=== PATIENT | female | born 1965 | race Caucasian/White ===

== ENCOUNTER 2021-01-12 09:56 | Day surgery (SDC) | payer BC, SELFPAY ==
[2021-01-05 13:59] VITALS: BMI 36.7
--- NOTE | 2021-01-11 07:58 | P.CONAN_ITS ---
Documented by User: Jessica Duckworth 01/11/21 07:59 HPI - Anesthesia Eval Consult details Narrative: 55yo F for Colonoscopy PMFSH Past Medical History Medical History History of cellulitis HTN (hypertension) Surgical History Surgical History History of wisdom tooth extraction Hx of section Hx of colonoscopy Social History Social History Do you presently have visiting nurse or other home services: No Smoking Status: Never smoker Use of substances other than those prescribed or required for medical reasons: No Have you been hit, kicked, punched, or otherwise hurt by someone within the past year? If so, by whom?: No Advance Directives: No Advance Directives Information Provided: No Advance Directives on File: No Recently lost weight without trying: No Meds Allergies Allergy/AdvReac Type Severity Reaction Status Date / Time keflex Allergy Mild rash Uncoded 01/12/21 10:28 Home Medications Medication Instructions Recorded Confirmed Last Taken Type lisinopril 1 tab PO DAILY 01/05/21 01/05/21 01/12/21 08:00 History multivitamin 1 tab PO DAILY 01/05/21 01/05/21 Unknown History Exam Exam Date and Time: January 11, 2021 0758 Height,Weight and Vital Signs: Height 5 ft 4 in Weight 97.069 kg Assessment and Plan Assessment Anesthesia Assessment: Chart Reviewed Documented by User: Suzy Shipley 01/12/21 11:40 [facility] Past Medical History Medical History History of cellulitis HTN (hypertension) Surgical History Surgical History History of wisdom tooth extraction Hx of section Hx of colonoscopy Social History Social History Do you presently have visiting nurse or other home services: No Smoking Status: Never smoker Use of substances other than those prescribed or required for medical reasons: No Have you been hit, kicked, punched, or otherwise hurt by someone within the past year? If so, by whom?: No Advance Directives: No Advance Directives Information Provided: No Advance Directives on File: No Recently lost weight without trying: No Meds Allergies Allergy/AdvReac Type Severity Reaction Status Date / Time keflex Allergy Mild rash Uncoded 01/12/21 10:28 Home Medications Medication Instructions Recorded Confirmed Last Taken Type lisinopril 1 tab PO DAILY 01/05/21 01/05/21 01/12/21 08:00 History multivitamin 1 tab PO DAILY 01/05/21 01/05/21 Unknown History Exam Airway Mallampati Class: II TM Dist: >3cm Neck ROM: Full Loose/Missing/Broken Teeth: No Heart: RRR Lungs: CTA Assessment and Plan Assessment Anesthesia Assessment: Anesthesia Plan Discussed and Chart Reviewed Final Anesthetic Review NPO: Yes ASA Class: II Final Preanesthetic Review: Meds/Allgs Chart Reviewed, Consent Obtained/Reviewed and Anes Risks/Benef Reviewed Patient Risk: Low Procedure Risk: Low Anesthetic Plan Anesthetic Plan: MAC: Disposition: Standard PACU
[2021-01-12 10:54] VITALS: BP 130/75; PULSE 78; RESP 18; TEMP 36.6; O2SAT 98
[2021-01-12] MEDS: Lactated Ringers 1,000 ML 100 ML IVCONT (11:04)
[2021-01-12 12:22] VITALS: BP 147/79; PULSE 93; RESP 20; TEMP 37; O2SAT 99
--- NOTE | 2021-01-12 12:24 | PM.OP ---
Brief Operative Note Date of Service: 01/12/21 Pre-op diagnosis: Screening Post-op diagnosis: other (Diverticulosis, Internal/External Hemorrhoids) Procedure: Colonoscopy to cecum and TI Surgeon: Jhony Koo Anesthesia: MAC Estimated blood loss (mL): 0 Pathology: none sent Condition: stable Disposition: PACU
[2021-01-12 12:37] VITALS: BP 153/77; PULSE 65; RESP 20; O2SAT 99
[2021-01-12] MEDS: ondansetron HCL 4 MG/2 ML VIAL IVPUSH (12:41)
[2021-01-12 12:47] VITALS: BP 154/79; PULSE 68; RESP 16; TEMP 37; O2SAT 99
--- NOTE | 2021-01-12 13:23 | OP_ITS ---
SURGEON: Jhony Koo MD PREOPERATIVE DIAGNOSIS: Personal history of tubular adenoma of the colon and colorectal cancer screening. POSTOPERATIVE DIAGNOSIS: Personal history of tubular adenoma of the colon and colorectal cancer screening, diverticulosis, internal and external hemorrhoids. PROCEDURE PERFORMED: ESTIMATED BLOOD LOSS: COMPLICATIONS: ANESTHESIA: Monitored anesthesia care. ASSISTANTS: SPECIMENS: PROCEDURE: Colonoscopy to cecum and terminal ileum. INDICATION: Patient presents for evaluation of colorectal cancer screening and personal history of tubular adenoma of the colon. Full consent has been obtained from her for this, including risks of bleeding and perforation. DESCRIPTION OF PROCEDURE: The patient was placed in the left lateral decubitus position. The digital rectal exam revealed external hemorrhoidal tissue. The Olympus video pediatric colonoscope was advanced into the rectum and advanced easily to the cecum. Once in the cecum, I did identify normal-appearing cecal pouch with appendiceal orifice and a normal-appearing ileocecal valve. The terminal ileum was cannulated and appeared normal. The scope was withdrawn back in the colon. The entire cecum and ileocecal valve appeared normal. Scope was slowly withdrawn assessing all mucosal surfaces carefully. Preparation was excellent. I did not visualize any sign of polyps, colitis, or angiodysplasia. There was a mild amount of sigmoid diverticulosis. In the rectum, scope was retroflexed, visualizing internal hemorrhoids, but no other pathology. The rectal mucosa appeared normal. The scope was straightened and withdrawn from the patient. She tolerated the procedure well and was returned to recovery area in stable condition. IMPRESSION: 1. Diverticulosis. 2. Internal and external hemorrhoids. PLAN: Given her previous history, I would recommend a followup colonoscopy in 5 years for further screening. She will otherwise see me on a p.r.n. basis. This has been discussed with her . MD CARLOTTA Rosario/BETTINAL / [id number]
== END 2021-01-12 13:28 | disposition home or self-care (01) ==
PROVIDERS: PCP Internal Medicine; Visit Provider Internal Medicine
PROC: 0DJD8ZZ Inspection of Lower Intestinal Tract, Via Natural or Artificial Opening Endoscopic (ICD-10-PCS; CPT 45378; principal; 2021-01-12 11:10)
DX: Z12.11 Encounter for screening for malignant neoplasm of colon (principal); Z86.010 Personal history of colon polyps; K57.30 Diverticulosis of large intestine without perforation or abscess without bleeding; K64.8 Other hemorrhoids; K64.4 Residual hemorrhoidal skin tags; I10 Essential (primary) hypertension; Z79.899 Other long term (current) drug therapy; Z88.1 Allergy status to other antibiotic agents
CPT/HCPCS: 45378; J2405

== ENCOUNTER 2021-06-21 09:10 | Outpatient (REF) | payer BC, SELFPAY ==
--- NOTE | ~2021-06-21 | MM_ITS ---
EXAMINATION: MM SCREENING DIGITAL BREAST TOMOSYNTHESIS, BILATERAL CLINICAL INFORMATION: Screening. Asymptomatic. The lifetime risk of breast cancer based on the Tyrer-Cuzick Model is 7.6%. COMPARISON: Mammography: June 15, 2020 and studies dating back to May 08, 2015 TECHNIQUE: Digital breast tomosynthesis is performed in both the craniocaudal and mediolateral oblique views along with computer-aided detection (CAD). Synthesized 2D images are generated from the tomosynthesis. FINDINGS: There are scattered areas of fibroglandular density (ACR BI-RADS breast composition Category b). There are no significant masses, abnormal calcifications, or other abnormalities. MM/MM tomosynthesis screening BI IMPRESSION: There are no significant changes from prior study. ASSESSMENT: BI-RADS 1: Negative RECOMMENDATION: Routine annual mammography screening. This patient's information was entered into a reminder system with a target due date for their next mammogram.
== END 2021-06-21 09:11 | disposition home or self-care (01) ==
LOC: HO.MAMMO 09:10
PROVIDERS: PCP Internal Medicine; Visit Provider Internal Medicine
DX: Z12.31 Encounter for screening mammogram for malignant neoplasm of breast (principal)
CPT/HCPCS: 77063; 77067

== ENCOUNTER 2021-12-07 11:13 | Outpatient (REF) | payer BC, SELFPAY ==
[2021-12-07 11:40] LABS: MANUAL DIFF FLAG NO
[2021-12-07 12:04] LABS: Basophils Percent Auto 0.8 % (0-2); Eosinophils Absolute Auto 0.1 X10*3/uL (0.0-0.4); Eosinophils Percent Auto 2.8 % (0-4); Hemoglobin 14.4 g/dl (12.0-16.0); Imm Gran Abs Auto 0.01 X10*3/uL (0.00-0.03); Imm Gran Pct Auto 0.3 % (0.0-0.4); Lymphocytes Absolute Auto 1.4 X10*3/uL (1.2-4.9); Lymphocytes Percent Auto 34.3 % (20-40); Mean Corpuscular HGB Conc 32.7 g/dl (31.0-35.0); Mean Corpuscular Hemoglobin 30.1 pg (27.0-33.0); Mean Corpuscular Volume 91.9 fL (80.0-98.0); Monocytes Absolute Auto 0.4 X10*3/uL (0.1-1.2); Monocytes Percent Auto 9.6 % (2-11); Neutrophils Absolute Auto 2.1 x10*3/uL (2.0-8.3); Neutrophils Percent Auto 52.2 % (45-73); Platelet Count 284 X10*3/uL (160-400); Red Blood Count 4.79 X10*6/uL (4.20-5.50); White Blood Count 3.9 X10*3/uL (4.8-10.8)
[2021-12-07 12:31] LABS: Alanine Aminotransferase 24 U/L (0-31); Albumin Level 4.1 g/dL (3.5-5.0); Alkaline Phosphatase 73 U/L (39-117); Anion Gap 11 (12-20); Aspartate Amino Transferase 19 U/L (5-31); Bilirubin Total 0.6 mg/dL (0.0-1.0); Blood Urea Nitrogen 13 mg/dL (9-16); Calcium 9.3 mg/dL (8.4-10.2); Carbon Dioxide 31 mmol/L (22-29); Chloride 102 mmol/L (96-108); Cholesterol 205 mg/dL; Estimated Glomerular Filt Rate > 60; Glucose Fasting 96 mg/dL (60-99); HDL Cholesterol 50 mg/dL; LDL Cholesterol Calculated 132 mg/dl; Potassium 4.8 mmol/L (3.3-5.1); Sodium 139 mmol/L (135-145); Total Protein 6.8 g/dL (6.5-8.0); Triglycerides 118 mg/dL
[2021-12-07 12:53] LABS: Vitamin D 25-OH Total 32.5 ng/mL (>30)
== END 2021-12-07 11:14 | disposition home or self-care (01) ==
LOC: HO.LAB 11:13
PROVIDERS: PCP Internal Medicine; Visit Provider Internal Medicine
DX: Z00.00 Encounter for general adult medical examination without abnormal findings (principal); E55.9 Vitamin D deficiency, unspecified
CPT/HCPCS: 36415; 80053; 80061; 82306; 85025

== ENCOUNTER 2022-06-24 09:00 | Outpatient (REF) | payer BC, SELFPAY ==
--- NOTE | ~2022-06-24 | MM_ITS ---
EXAMINATION: MM SCREENING DIGITAL BREAST TOMOSYNTHESIS, BILATERAL CLINICAL INFORMATION: Screening. Asymptomatic. The lifetime risk of breast cancer based on the Tyrer-Cuzick Model is 7%. COMPARISON: Mammography: 06/21/2021, 06/15/2020, 01/29/2019 TECHNIQUE: Digital breast tomosynthesis is performed in both the craniocaudal and mediolateral oblique views along with computer-aided detection (CAD). Synthesized 2D images are generated from the tomosynthesis. FINDINGS: There are scattered areas of fibroglandular density (ACR BI-RADS breast composition Category b). There are no significant masses, abnormal calcifications, or other abnormalities. Parenchymal pattern is similar to prior studies. There is no developing density or architectural abnormality. The axilla and skin contours are unremarkable. No significant changes. MM/MM tomosynthesis screening BI IMPRESSION: No mammographic evidence of malignancy. ASSESSMENT: BI-RADS 1: Negative RECOMMENDATION: Routine annual mammography screening. This patient's information was entered into a reminder system with a target due date for their next mammogram.
== END 2022-06-24 09:01 | disposition home or self-care (01) ==
LOC: HO.MAMMO 09:00
PROVIDERS: Visit Provider Internal Medicine
DX: Z12.31 Encounter for screening mammogram for malignant neoplasm of breast (principal)
CPT/HCPCS: 77063; 77067

== ENCOUNTER 2022-12-06 10:12 | Outpatient (REF) | payer BC, SELFPAY ==
[2022-12-06 10:31] LABS: MANUAL DIFF FLAG NO
[2022-12-06 11:50] LABS: Eosinophils Absolute Auto 0.1 X10*3/uL (0.0-0.4); Eosinophils Percent Auto 2.8 % (0-4); Hematocrit 44.3 % (37.0-47.0); Hemoglobin 14.3 g/dl (12.0-16.0); Imm Gran Abs Auto 0.01 X10*3/uL (0.00-0.03); Imm Gran Pct Auto 0.3 % (0.0-0.4); Lymphocytes Absolute Auto 1.3 X10*3/uL (1.2-4.9); Lymphocytes Percent Auto 32.6 % (20-40); Mean Corpuscular HGB Conc 32.3 g/dl (31.0-35.0); Mean Corpuscular Hemoglobin 29.7 pg (27.0-33.0); Mean Corpuscular Volume 92.1 fL (80.0-98.0); Mean Platelet Volume 9.7 fL (9.4-12.3); Monocytes Absolute Auto 0.4 X10*3/uL (0.1-1.2); Monocytes Percent Auto 9.3 % (2-11); Neutrophils Absolute Auto 2.1 x10*3/uL (2.0-8.3); Platelet Count 297 X10*3/uL (160-400); Red Blood Count 4.81 X10*6/uL (4.20-5.50); Red Cell Distribution Width 12.3 % (11.0-16.0)
[2022-12-06 12:30] LABS: Alanine Aminotransferase 17 U/L (0-31); Alkaline Phosphatase 80 U/L (39-117); Anion Gap 13 (12-20); Aspartate Amino Transferase 19 U/L (5-31); Bilirubin Total 0.7 mg/dL (0.0-1.0); Blood Urea Nitrogen 14 mg/dL (9-16); Calcium 9.2 mg/dL (8.4-10.2); Carbon Dioxide 29 mmol/L (22-29); Chloride 103 mmol/L (96-108); Cholesterol 208 mg/dL; Estimated Glomerular Filt Rate > 60; Glucose Fasting 97 mg/dL (60-99); HDL Cholesterol 55 mg/dL; LDL Cholesterol Calculated 133 mg/dl; Potassium 5.4 mmol/L (3.3-5.1); Sodium 140 mmol/L (135-145); Total Protein 6.8 g/dL (6.5-8.0); Triglycerides 104 mg/dL
== END 2022-12-06 10:13 | disposition home or self-care (01) ==
LOC: HO.LAB 10:12
PROVIDERS: PCP Internal Medicine; Visit Provider Internal Medicine
DX: Z00.00 Encounter for general adult medical examination without abnormal findings (principal)
CPT/HCPCS: 36415; 80053; 80061; 85025

== ENCOUNTER 2023-07-04 08:48 | Outpatient (REF) | payer BC, SELFPAY ==
--- NOTE | ~2023-07-04 | MM_ITS ---
EXAMINATION: MM SCREENING DIGITAL BREAST TOMOSYNTHESIS, BILATERAL CLINICAL INFORMATION: Screening. Asymptomatic. COMPARISON: Mammography: 06/24/2022, 06/21/2021, 06/15/2020, 01/29/2019, dating back to 2016. TECHNIQUE: Digital breast tomosynthesis is performed in both the craniocaudal and mediolateral oblique views along with computer-aided detection (CAD). Synthesized 2D images are generated from the tomosynthesis. A 3-D full-field X CCL was included. FINDINGS: There are scattered areas of fibroglandular density (ACR BI-RADS breast composition Category b). There are no suspicious masses, suspicious grouped calcifications, or areas of architectural distortion. The parenchymal pattern is stable from prior exams. There are early vascular calcifications bilaterally. No skin or axillary abnormality. MM/MM tomosynthesis screening BI IMPRESSION: No mammographic evidence of malignancy. Stable benign findings. ASSESSMENT: BI-RADS BI-RADS 2 - Benign Findings RECOMMENDATION: Routine annual mammography screening. 1 year F/U This examination should not preclude the clinical evaluation of a suspicious palpable abnormality. This patient's information was entered into a reminder system with a target due date for their next mammogram.
== END 2023-07-04 08:49 | disposition home or self-care (01) ==
LOC: HO.MAMMO 08:48
PROVIDERS: PCP Internal Medicine; Visit Provider Internal Medicine
DX: Z12.31 Encounter for screening mammogram for malignant neoplasm of breast (principal)
CPT/HCPCS: 77063; 77067

== ENCOUNTER → 2023-07-04 09:00 | Outpatient (BNV) | payer BC, SELFPAY | PROVIDERS: PCP Internal Medicine; Visit Provider Radiology Diagnostic Radiology | DX: Z12.31 Encounter for screening mammogram for malignant neoplasm of breast (principal) | CPT/HCPCS: 77063; 77067 ==

== ENCOUNTER 2023-07-31 16:49 | Outpatient (REF) | payer BC, SELFPAY | END 2023-07-31 16:50 | disposition home or self-care (01) | LOC: HO.US 16:49 | PROVIDERS: PCP Internal Medicine; Visit Provider Internal Medicine | DX: M79.604 Pain in right leg (principal) | CPT/HCPCS: 93971 ==

== ENCOUNTER 2023-08-08 13:20 | Outpatient (REF) | payer BC, SELFPAY ==
[2023-08-08 13:29] LABS: MANUAL DIFF FLAG NO
[2023-08-08 13:46] LABS: Basophils Absolute Auto 0.1 X10*3/uL (0.0-0.2); Basophils Percent Auto 1.2 % (0-2); Eosinophils Absolute Auto 0.1 X10*3/uL (0.0-0.4); Eosinophils Percent Auto 3.4 % (0-4); Hematocrit 42.8 % (37.0-47.0); Hemoglobin 13.9 g/dl (12.0-16.0); Imm Gran Abs Auto 0.02 X10*3/uL (0.00-0.03); Imm Gran Pct Auto 0.5 % (0.0-0.4); Lymphocytes Absolute Auto 1.3 X10*3/uL (1.2-4.9); Lymphocytes Percent Auto 31.6 % (20-40); Mean Corpuscular HGB Conc 32.5 g/dl (31.0-35.0); Mean Corpuscular Hemoglobin 29.4 pg (27.0-33.0); Mean Corpuscular Volume 90.5 fL (80.0-98.0); Mean Platelet Volume 8.8 fL (9.4-12.3); Monocytes Absolute Auto 0.4 X10*3/uL (0.1-1.2); Monocytes Percent Auto 9.2 % (2-11); Neutrophils Absolute Auto 2.3 x10*3/uL (2.0-8.3); Neutrophils Percent Auto 54.1 % (45-73); Platelet Count 401 X10*3/uL (160-400); Red Blood Count 4.73 X10*6/uL (4.20-5.50); Red Cell Distribution Width 12.2 % (11.0-16.0); White Blood Count 4.2 X10*3/uL (4.8-10.8)
[2023-08-08 14:57] LABS: Alanine Aminotransferase 15 U/L (0-31); Albumin Level 4.1 g/dL (3.5-5.0); Alkaline Phosphatase 91 U/L (39-117); Anion Gap 13 (12-20); Aspartate Amino Transferase 17 U/L (5-31); Bilirubin Total 0.2 mg/dL (0.0-1.0); Blood Urea Nitrogen 12 mg/dL (9-16); Calcium 9.4 mg/dL (8.4-10.2); Carbon Dioxide 28 mmol/L (22-29); Chloride 102 mmol/L (96-108); Estimated Glomerular Filt Rate > 60; Glucose Random 193 mg/dL (60-115); Potassium 3.9 mmol/L (3.3-5.1); Sodium 139 mmol/L (135-145); Total Protein 7.8 g/dL (6.5-8.0)
== END 2023-08-08 13:21 | disposition home or self-care (01) ==
LOC: HO.LAB 13:20
PROVIDERS: PCP Internal Medicine; Visit Provider Internal Medicine
DX: I10 Essential (primary) hypertension (principal); R60.0 Localized edema; L03.90 Cellulitis, unspecified
CPT/HCPCS: 36415; 80053; 85025

== ENCOUNTER 2024-07-09 09:03 | Outpatient (REF) | payer BC, SELFPAY ==
--- NOTE | ~2024-07-09 | MM_ITS ---
EXAMINATION: MM SCREENING DIGITAL BREAST TOMOSYNTHESIS, BILATERAL CLINICAL INFORMATION: Screening. Asymptomatic. COMPARISON: Mammography: Comparison is made with available priors TECHNIQUE: Digital breast mammography with tomosynthesis is performed in both the craniocaudal and mediolateral oblique views along with computer-aided detection (CAD). FINDINGS: There are scattered areas of fibroglandular density (ACR BI-RADS breast composition Category b). There are no significant masses, abnormal calcifications, or other abnormalities. MM/MM tomosynthesis screening BI IMPRESSION: No mammographic evidence of malignancy. ASSESSMENT: BI-RADS BI-RADS 1 - Negative RECOMMENDATION: Routine annual mammography screening. 1 year F/U This examination should not preclude the clinical evaluation of a suspicious palpable abnormality. This patient's information was entered into a reminder system with a target due date for their next mammogram. Electronically signed by: Jil Moctezuma DO 07/22/2024 08:07 PM EDT
== END 2024-07-09 09:04 | disposition home or self-care (01) ==
LOC: HO.MAMMO 09:03
PROVIDERS: PCP Internal Medicine; Visit Provider Internal Medicine
DX: Z12.31 Encounter for screening mammogram for malignant neoplasm of breast (principal)
CPT/HCPCS: 77063; 77067

== ENCOUNTER → 2024-07-09 09:15 | Outpatient (BNV) | payer BC, SELFPAY | PROVIDERS: PCP Internal Medicine; Visit Provider Internal Medicine | DX: Z12.31 Encounter for screening mammogram for malignant neoplasm of breast (principal) | CPT/HCPCS: 77063; 77067 ==

== ENCOUNTER 2025-03-25 12:58 | Outpatient (AMB) | payer BC, SELFPAY ==
--- NOTE | 2025-03-25 13:05 | A.OFFPC_ITS ---
Vital Signs 03/25/25 13:11 03/25/25 13:23 Height 5 ft 3 in 5 ft 3 in Weight 91.172 kg BMI 35.6 BP 142/64 H 136/74 Respiration 16 Pulse 71 Pulse Source Pulse Oximeter Temp 97.9 F Temp Source Temporal Artery Scan Pulse Oximetry (%) 98 Oxygen Delivery Method Room Air Intake Visit Reasons: Routine Lease Analyst Required: No Accompanied by: Self / Same As Patient Allergies keflex Allergy (Mild, Uncoded 03/25/25 13:06) rash Medication List - Last Reconciled 03/25/25 by DEBBY Griffin [Calcium PO] lisinopril 5 mg PO DAILY multivitamin 1 tab PO DAILY HPI HPI Comments History of Present Illness Details 60-year-old female with history of hyper tension, hyperlipidemia, venous insufficiency presents to the office today for management of chronic conditions and to establish care. She has no acute issues today. Secondary to her venous insufficiency, she has had multiple recurrences of cellulitis, primarily in the left lower extremity but also in the right. Last flare was in the fall of 2022. She is now taking probiotic given history of multiple antibiotic courses. She does sometimes wear compression stockings but not all the time. She does magnolia vate her legs at night. Not currently on any diuretics. She has no history of smoking nor DVT. She is obese with BMI greater than 35 is not actively working on weight loss. She is not overly bothered by the edema in the lower extremities. She is compliant with lisinopril 5 mg daily for management of her blood pressure. Initial blood pressure in the office today was 142/64 and on recheck 136/74. She is not currently on statin medication. ROS: General: No fevers, malaise, unintentional weight loss HEENT: No blurred vision, diplopia. No sore throat, nasal congestion, rhinorrhea, sinus pain, ear pain Cardiovascular: No chest pain, palpitations. see hpi Respiratory: No shortness of breath, wheezing, cough GI: No abdominal pain, nausea, vomiting, diarrhea, constipation, melena, hematochezia : No dysuria, hematuria, increased urinary frequency, decreased urinary output Neuro: No headaches, weakness, paresthesias Skin: No rashes or lesions. see hpi EXAM: Constitutional - Awake and Alert, No apparent distress Eyes - PERRLA, EOMI Cardiovascular - S1S2, RRR Respiratory - Normal lung expansion, Normal respiratory effort, No respiratory distress, CTA bilaterally Extremities - no calf tenderness bilaterally, no swelling Skin - Warm/Dry. Venous stasis ble with 2_ pitting edema Neurological - Alert & oriented x3, CN II-XII in tact, 5/5 strength BUE and BLE Psychological - Appropriate affect [facility] Medical History (Updated 03/25/25 @ 13:36 by DEBBY Griffin) Obesity, class 3 HLD (hyperlipidemia) Venous insufficiency History of cellulitis HTN (hypertension) Surgical History Hx of section History of wisdom tooth extraction Hx of colonoscopy Social History Do you presently have visiting nurse or other home services: No Questionnaire PHQ-9 Over the last 2 weeks, how often have you been bothered by any of the following problems? 1. Little interest or pleasure in doing things: not at all 2. Feeling down, depressed, or hopeless: not at all 3. Trouble falling or staying asleep, or sleeping too much: not at all 4. Feeling tired or having little energy: more than half the days 5. Poor appetite or overeating: not at all 6. Feeling bad about yourself - or that you are a failure or have let yourself or your family down: not at all 7. Trouble concentrating on things, such as reading the newspaper or watching television: not at all 8. Moving or speaking so slowly that other people could have noticed. Or the opposite - being so fidgety or restless that you have been moving around a lot more than usual: not at all 9. Thoughts that you would be better off or of hurting yourself in some way: not at all Total score: 2 Source: Developed by Drs. Jhony Wiseman, Savi Ren, Jose Starkey and colleagues, with an educational brenda from [employer]. Thrive Questionnaire Date Thrive assessed: 03/25/25 I am a: Patient What is your living situation today?: I have a steady place to live Within the past 12 months, did the food you bought not last and you didn't have the money to get more?: Never true Within the past 12 months, did you worry whether your food would run out before you got money to buy more?: Never true Do you have trouble paying for medicines?: No Do you have trouble getting transportation to medical appointments?: No Do you have trouble paying your heating and electricity bill?: No Do you have trouble taking care of your child, family member or friend?: No Do you have trouble with day-to-day activities such as bathing, preparing meals, shopping, managing finances, etc.?: No Are you currently unemployed and looking for a job?: No Are you interested in more education?: No Please select the resources that you would like help with: None THRIVE Score: 0 PAULA-7 AMB Questionnaire PAULA-7 Date PAULA - 7 assessed: 03/25/25 Feeling nervous, anxious, or on edge: 0 = Not at all Not being able to stop or control worryin = Not at all Worrying too much about different things: 0 = Not at all Trouble relaxin = Not at all Being so restless that it is hard to sit still: 0 = Not at all Becoming easily annoyed or irritable: 0 = Not at all Feeling afraid as if something awful might happen: 0 = Not at all Total PAULA-7 score (0-4 normal; 5-9 mild; 10-14 moderate; 15-21 severe): 0 Source: Developed by Drs. Jhony Wiseman, Savi Ren, Jose Starkey and colleagues, with an educational brenda from [employer]. Physical exam (Primary Care) Vital Signs: Last Vital Signs Temp 97.9 F 03/25/25 13:11 Pulse 71 03/25/25 13:11 Resp 16 03/25/25 13:11 BP 136/74 03/25/25 13:23 Pulse Ox 98 03/25/25 13:11 Oxygen Delivery Method Room Air 03/25/25 13:11 BMI result Body Mass Index 35.6 PHQ-9: PHQ-9 Score PHQ-9: Total score 2 03/25/25 13:56 Thrive Assessment: Date of Thrive Assessment Date Thrive assessed 03/25/25 03/25/25 13:56 Coding Level of Care Code New Pt Level 4 (94167) Complex EM visit Add On G2211 Diagnoses Venous insufficiency I87.2 HLD (hyperlipidemia) E78.5 HTN (hypertension) I10 Obesity, class 3 E66.813 Assessment & Plan Assessment & Plan (1) Venous insufficiency: Code(s): I87.2 - Venous insufficiency (chronic) (peripheral) Category: Medical Plan: Stable, not currently bother by symptoms. Recommend compression stockings, especially with prolonged sitting or standing. Low-sodium diet and leg elevation also recommended. Discussed that weight loss will also likely help symptoms. We will check renal function. Low suspicion for cardiac etiology (2) HLD (hyperlipidemia): Code(s): E78.5 - Hyperlipidemia, unspecified Category: Medical Plan: Lipid panel ordered. Recommend diet low in saturated fats and highly processed foods. Recommend increased exercise efforts. ASCVD risk score will be calculated pending results of study. (3) HTN (hypertension): Code(s): I10 - Essential (primary) hypertension Category: Medical Plan: Controlled on recheck with blood pressure 136/74. Continue lisinopril 5 mg daily. Will assess renal function and electrolyte levels today. (4) Obesity, class 3: Code(s): E66.813 - Obesity, class 3 Category: Medical Plan: Weight loss efforts encouraged. Recommend diet lower in calories including refined sugars, simple carbohydrates, and saturated fats. Recommend increased protein, vegetables, fruit intake. Recommend regular exercise. Plan Follow up in the office in 6 months. Labs to be completed following the visit today as well as prior to next visit. Continue current medications Orders: Orders Basic Metabolic Panel Today E78.5 - Hyperlipidemia, unspecified, I10 - Essential (primary) hypertension, I87.2 - Venous insufficiency (chronic) (peripheral), R73.09 - Other abnormal glucose, Z13.1 - Encounter for screening for diabetes mellitus Complete Blood Count Auto Diff Today E78.5 - Hyperlipidemia, unspecified, I10 - Essential (primary) hypertension, I87.2 - Venous insufficiency (chronic) (peripheral), R73.09 - Other abnormal glucose, Z13.1 - Encounter for screening for diabetes mellitus Hemoglobin A1c Today E78.5 - Hyperlipidemia, unspecified, I10 - Essential (primary) hypertension, I87.2 - Venous insufficiency (chronic) (peripheral), R73.09 - Other abnormal glucose, Z13.1 - Encounter for screening for diabetes mellitus Lipid Panel Today E78.5 - Hyperlipidemia, unspecified, I10 - Essential (primary) hypertension, I87.2 - Venous insufficiency (chronic) (peripheral), R73.09 - Other abnormal glucose, Z13.1 - Encounter for screening for diabetes mellitus Basic Metabolic Panel 6 Months E78.5 - Hyperlipidemia, unspecified, I10 - Essential (primary) hypertension Lipid Panel 6 Months E78.5 - Hyperlipidemia, unspecified, I10 - Essential (primary) hypertension Medications: Refilled lisinopril 5 mg PO DAILY 90 tabs 1RF
[2025-03-25 13:11] VITALS: BP 142/64; PULSE 71; RESP 16; TEMP 36.6; O2SAT 98; BMI 35.6
--- OUTSIDE RECORDS SUMMARY | 2025-03-25 13:11 | XMS_ITS | Patient Health Record ---
Author Organization [facility] Address [address] [place] [address] Care Team Providers Care Dynamometer Tuner Name Role Phone Rafael Bright MD Primary Care Provider Jhony Modi [phone] Allergies Allergen (clinical drug ingredient) Drug/Non Drug Allergy documented on EMR Reaction Allergy Type Onset Date Status Keflex rash Drug Allergy Active Reason For Referral No Information Medications Medication SIG (Take, Route, Frequency, Duration) Notes Start Date End Date Status Multivitamin Active Calcium Active Lisinopril Active Immunizations Vaccine Route Administration Date Status Comme nts Influenza Unknown 06/27/2020 Administered Problems Problem Type SNOMED Code ICD Code Onset Dates Problem Status W/U Status Risk Notes Problem 990612727 Encounter for screening for malignant neoplasm of colon (Z12.11) Active confirmed Problem History of adenomatous polyp of colon (895261002) History of adenomatous polyp of colon (Z86.010) Active confirmed Problem 01864902 Preprocedural examination (Z01.818) Active confirmed Problem 01245691 Preprocedural cardiovascular examination (Z01.810) Active confirmed Plan Of Treatment Future Test Test Name Order Date COLONOSCOPY 08/24/2015 COLONOSCOPY 12/29/2020 Insurance Providers Payer Name Payer Address Payer Phone Subscriber Number Group Number Insured Name Patient Relationship to Insured Coverage Start Date Coverage End Date [facility] [id number] [place], [place] [id number] [phone] [id number] MENDEZ EVANGELISTA Self - patient is the insured Medical (General) History Medical History History ICD Code HTN Cellulits-left leg--recurring with hospi talizations Denies UT,DM,CVA,Lung disease,renal dise ase Screening colonoscopy in 10/2015 with rem oval of a small tubular adenoma Surgical History Surgery Date(Month/Year) [place] teeth
[2025-03-25 13:23] VITALS: BP 136/74
== END 2025-03-25 13:33 | disposition home or self-care (01) ==
LOC: HO.HMCHD 12:59
PROVIDERS: PCP Internal Medicine; Visit Provider Physician Assistant
DX: I87.2 Venous insufficiency (chronic) (peripheral) (principal); E78.5 Hyperlipidemia, unspecified; I10 Essential (primary) hypertension; E66.813 Obesity, class 3

== ENCOUNTER 2025-03-25 12:58 | Outpatient (REF) | payer BC, SELFPAY ==
[2025-03-25 13:51] LABS: MANUAL DIFF FLAG NO
[2025-03-25 14:33] LABS: Basophils Percent Auto 0.8 % (0-2); Eosinophils Absolute Auto 0.1 X10*3/uL (0.0-0.4); Eosinophils Percent Auto 2.9 % (0-4); Hematocrit 43.9 % (37.0-47.0); Hemoglobin 14.5 g/dl (12.0-16.0); Imm Gran Abs Auto 0.02 X10*3/uL (0.00-0.03); Imm Gran Pct Auto 0.4 % (0.0-0.4); Lymphocytes Absolute Auto 1.8 X10*3/uL (1.2-4.9); Lymphocytes Percent Auto 35.7 % (20-40); Mean Corpuscular Volume 90.7 fL (80.0-98.0); Mean Platelet Volume 9.2 fL (9.4-12.3); Monocytes Absolute Auto 0.5 X10*3/uL (0.1-1.2); Monocytes Percent Auto 9.2 % (2-11); Neutrophils Absolute Auto 2.5 x10*3/uL (2.0-8.3); Platelet Count 314 X10*3/uL (160-400); Red Blood Count 4.84 X10*6/uL (4.20-5.50); Red Cell Distribution Width 12.6 % (11.0-16.0); White Blood Count 4.9 X10*3/uL (4.8-10.8)
[2025-03-25 14:39] LABS: Estimated Average Glucose 111 mg/dL; Hemoglobin A1c % 5.5 % (<6.0); Total Hemoglobin (HGBA1C) 3796.9278 umol/L
[2025-03-25 15:50] LABS: Anion Gap 9 (12-20); Blood Urea Nitrogen 18 mg/dL (9-16); Calcium 9.8 mg/dL (8.4-10.2); Carbon Dioxide 32 mmol/L (22-29); Chloride 105 mmol/L (96-108); Cholesterol 198 mg/dL (<200); Estimated Glomerular Filt Rate > 60; Glucose Random 77 mg/dL (60-115); HDL Cholesterol 62 mg/dL (>40); LDL Cholesterol Calculated 109 mg/dL (<100); Potassium 4.1 mmol/L (3.3-5.1); Sodium 142 mmol/L (135-145); Triglycerides 137 mg/dL (<150)
== END 2025-03-25 12:59 | disposition home or self-care (01) ==
LOC: HO.LAB 12:58
PROVIDERS: PCP Physician Assistant; Visit Provider Physician Assistant
DX: I10 Essential (primary) hypertension (principal); E78.5 Hyperlipidemia, unspecified; I87.2 Venous insufficiency (chronic) (peripheral); Z13.1 Encounter for screening for diabetes mellitus; R73.09 Other abnormal glucose
CPT/HCPCS: 36415; 80048; 80061; 83036; 85025

== ENCOUNTER 2025-07-15 08:33 | Outpatient (REF) | payer BC, SELFPAY ==
--- NOTE | ~2025-07-15 | MM_ITS ---
EXAMINATION: MM SCREENING DIGITAL BREAST TOMOSYNTHESIS, BILATERAL CLINICAL INFORMATION: Screening. Asymptomatic. COMPARISON: Mammography: Comparison is made with available priors TECHNIQUE: Digital breast mammography with tomosynthesis is performed in both the craniocaudal and mediolateral oblique views along with computer-aided detection (CAD). FINDINGS: There are scattered areas of fibroglandular density (ACR BI-RADS breast composition Category b). There are no significant masses, abnormal calcifications, or other abnormalities. MM/MM tomosynthesis screening BI IMPRESSION: No mammographic evidence of malignancy. ASSESSMENT: BI-RADS BI-RADS 1 - Negative RECOMMENDATION: Routine annual mammography screening. 1 year F/U This examination should not preclude the clinical evaluation of a suspicious palpable abnormality. This patient's information was entered into a reminder system with a target due date for their next mammogram. Electronically signed by: Jil Moctezuma DO 07/19/2025 01:08 PM EDT
--- OUTSIDE RECORDS SUMMARY | 2025-07-15 09:09 | XMS_ITS | Clinical Summary ---
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 Name Role Phone Rafael Bright MD Primary Care Provider Allergies Active Allergy Reactions Criticality Noted Date Comments Cephalexin Rash Low 07/19/2023 Medications lisinopril (PRINIVIL,ZESTR IL) 5 MG tablet Lisinopril Act donna multivit with minerals/lutein (MULTIVITAMIN 50 PLUS ORAL) Multivitamin Act donna doxycycline monohydrate (MONODOX) 100 MG capsule TAKE 1 CAPSULE(100 MG) BY MOUTH TWICE DAILY FOR 14 DAYS 28 capsule Active Additional Information Patient not taking.Reported on 06/28/2024 Active Problems No known active problems Immunizations Immunization Administration Dates Next Due COVID-19 Pfizer Comirnaty Vaccine 12+ 09/13/2023 INFLUENZA, SPLIT VIRUS, TRIVALENT PF 09/05/2017 Influenza Quadrivalent Prese rvative Free IM 11/08/2022,08/07/2021,07/15/2020,2015 Social History Tobacco Use Types Packs/Day Years Used Date Smoking Tobacco: Never Smokeless Tobacco: Never Education Answer Date Recorded Are you interested in more education? Not on irma e 02/21/2023 Are you concerned about learning? Not on file 02/21/2023 No 02/21/2023 No 02/21/2023 Digital Access Answer Date Recorded No 03/22/2023 No 03/22/2023 Reliable internet access at home? Not on file 03/22/2023 Device with a working camera? Not on file Comments Unknown Sex and Gender Information Value Date Recorded Sex Assigned at Not on file Legal Sex Female 9:13 AM EST Gender Identity Not on file Sexual Orientation Not on file Last Filed Vital Signs Vital Sign Reading Time Taken Comments Blood Pressure 135/85 06/28/2024 1:31 PM EDT Pulse 79 06/28/2024 1:31 PM EDT Temperature 36.6 C (97.8 F) 06/28/2024 1:31 PM EDT Respiratory Rate 16 06/28/2024 1:31 PM EDT Oxygen Saturation 97% 06/28/2024 1:31 PM EDT Inhaled Oxygen Concentration - - Weight 95.3 kg (210 lb) 07/19/2023 2:24 PM EDT Height 160 cm (5' 3 ) 07/19/2023 2:24 PM EDT Body Mass Index 37.2 07/19/2023 2:24 PM EDT Plan of Treatment Health Maintenance Due Date Last Done Comments Adult Td,Tdap Booster 1964 CREATININE LEVEL 1964 LIPID PANEL 1964 POTASSIUM LEVEL 1964 DEPRESSION SCREENING 1976 HEPATITIS C SCREENING 01/29/1982 HIV ONE-TIME SCREENING (18-65 YEARS) 01/29/1982 PAP SMEAR 01/29/1985 SCREENING FOR DIABETES 01/29/1999 MAMMOGRAM 2004 COLOGUARD 01/29/2009 COLONOSCOPY 01/29/2009 COLORECTAL CANCER SCREENING 01/29/2009 FIT TEST 01/29/2009 FOBT 01/29/2009 SIGMOIDOSCOPY 01/29/2009 VIRTUAL COLONOSCOPY 01/29/2009 PNEUMOCOCCAL VACCINES (50+ years) (1 of 1 - PCV) 01/29/2014 ZOSTER VACCINES (1 of 2) 01/29/2014 INFLUENZA VACCINE (#1) 2025 3, 08/07/2021, 07/15/2020, Additional history exists COVID-19 VACCINE ( - 2024- season) 2025 09/13/2023, 06/24/2022, 08/30/2021, Additional history exists RSV VACCINE (1 - 1-dose 75+ series) 01/29/2039 SMOKING STATUS SCREENING (Once After 26 Yrs) Completed 06/28/2024 HEPATITIS A VACCINES Aged Out No long er eligible based on patient's age to complete this topic HIB VACCINES Aged Out No longer eligi ble based on patient's age to complete this topic MENINGOCOCCAL VACCINES (ACWY) Aged Out No longer eligible based on patient's age to complete this topic MENINGOCOCCAL VACCINES (B) Aged Out N o longer eligible based on patient's age to complete this topic Medical Devices Not on file Insurance [place] [address] PPO EPO [facility] PPO EPO [facility] PPO EPO [facility] PPO EPO [facility] PPO EPO [facility] PPO EPO [facility] PPO EPO [facility] PPO EPO [facility] PPO EPO Care Teams Desizing Machine Operator Head End Relationship Specialty Start Date End Date Rafael Bright MD [address] [place] [address] [place] [address] PCP - General Internal Medicine 07/19/23 Additional Source Comments The information contained in this document represents components of the legal health record. It is not the complete legal health record.[facility]
== END 2025-07-15 08:34 | disposition home or self-care (01) ==
LOC: HO.MAMMO 08:33
PROVIDERS: PCP Physician Assistant; Visit Provider Physician Assistant
DX: Z12.31 Encounter for screening mammogram for malignant neoplasm of breast (principal)
CPT/HCPCS: 77063; 77067

== ENCOUNTER → 2025-07-15 08:45 | Outpatient (BNV) | payer BC, SELFPAY | PROVIDERS: PCP Physician Assistant; Visit Provider Internal Medicine | DX: Z12.31 Encounter for screening mammogram for malignant neoplasm of breast (principal) | CPT/HCPCS: 77063; 77067 ==